=== PATIENT | female | born 2000 | race Caucasian/White ===

== ENCOUNTER 2025-06-16 08:26 | Emergency (ER) | payer SELFPAY ==
--- OUTSIDE RECORDS SUMMARY | 2024-12-27 03:53 | XMS_ITS | Continuity of Care Document ---
Author Organization [facility] Address EDITORIAL CLERK [facility] [address] [place] [address] Phone Care Team Providers Care Cell Phone Repair Technician Name Role Phone Melissa Ravi APRN, CNP Unavailable Unavailabl e Allergies, Adverse Reactions, Alerts Substance Reaction Status Criticality adhesive Rash(mild) Active No Information mushroom Active No Information cinnamon Active No Information POTASSIUM CLAVULANATE vomiting Active No Inf ormation AMOXICILLIN TRIHYDRATE vomiting Active No In formation penicillin G rash Active No Information Medications Medication Instructions Dosage Effective Dates (start - stop) Status Comments omeprazole 40 mg capsule,delayed release take 1 capsule by oral route every day before a meal 40 MG - Active bupropion HCl XL 150 mg 24 hr tablet, extended release - Active SUMATRIPTAN SUCC 100 MG TABLET TAKE 1 TABLET BY ORAL ROUTE ONCE AFTER ONSET OF MIGRAINE MAY REPEAT AFTER 2 HOURS IF HEADACHE RETURNS,NOT TO EXCEED 200MG IN 24HRS - Active ibuprofen 600 mg tablet take 1 tablet by oral route 4 times every day with food 600 MG - Active mirtazapine [address] 1 tablet by translingual route every day on top of tongue, allow to dissolve then swallow in the evening prior to sleep 30 MG - Active Procedures Procedure Date IMMUNIZATION ADMIN FLU VACC CELL CULT PRSV FREE PREV VISIT, EST, AGE 18-39 TOBACCO NON-USER SYST BP < 130 MM HG DIAST BP < 80 MM HG WEIGHT RECORD BODY MASS INDEX DOCD OFFICE/OUTPATIENT, EST_TELE[facility] PT TOBACCO SCREEN RCVD TLK Indiv Psychotherapy 30 Min OFFICE/OUTPATIENT, EST_TELEHEALTH TOBACCO NON-USER OFFICE/OUTPATIENT VISIT, EST OFFICE/OUTPATIENT, EST_TELEHEALTH Limited Oral Evaluation-Problem Focused Panoramic Radiographic Image Ext, Erupt Tth/Expsd Root-Elev &/Or Forc eps Remvl Ext, Erupt Tth/Expsd Root-Elev &/Or Forc eps Remvl NO CHARGE_BH Visit <15 Mins LIPID PANEL PREV VISIT, EST, AGE 18-39 OFFICE/OUTPATIENT, EST_[facility] SYST BP < 130 MM HG Systolic BP < 140 mmhg DIAST BP < 80 MM HG Diastolic BP < 90 mmhg WEIGHT RECORD BODY MASS INDEX DOCD OFFICE/OUTPATIENT, EST_TELE[facility] SYST BP < 130 MM HG Systolic BP < 140 mmhg DIAST BP < 80 MM HG Diastolic BP < 90 mmhg WEIGHT RECORD BODY MASS INDEX DOCD OFFICE/OUTPATIENT, EST_TELEHEALTH SYST BP < 130 MM HG Systolic BP < 140 mmhg DIAST BP < 80 MM HG Diastolic BP < 90 mmhg WEIGHT RECORD BODY MASS INDEX DOCD OFFICE/OUTPATIENT, EST_TELEHEALTH SYST BP < 130 MM HG Systolic BP < 140 mmhg DIAST BP < 80 MM HG Diastolic BP < 90 mmhg WEIGHT RECORD BODY MASS INDEX DOCD OFFICE/OUTPATIENT, EST_TELEHEALTH SYST BP < 130 MM HG Systolic BP < 140 mmhg DIAST BP < 80 MM HG Diastolic BP < 90 mmhg WEIGHT RECORD BODY MASS INDEX DOCD OFFICE/OUTPATIENT, EST_TELEHEALTH SYST BP < 130 MM HG Systolic BP < 140 mmhg DIAST BP < 80 MM HG Diastolic BP < 90 mmhg WEIGHT RECORD BODY MASS INDEX DOCD OFFICE/OUTPATIENT, EST_TELEHEALTH OFFICE/OUTPATIENT, EST_TELE[facility]ALTH Indiv Psychotherapy 30 Min OFFICE/OUTPATIENT VISIT, EST OFFICE/OUTPATIENT VISIT, EST SYST BP < 130 MM HG Systolic BP < 140 mmhg DIAST BP < 80 MM HG Diastolic BP < 90 mmhg WEIGHT RECORD BODY MASS INDEX DOCD OFFICE/OUTPATIENT VISIT, EST SYST BP < 130 MM HG Systolic BP < 140 mmhg DIAST BP < 80 MM HG Diastolic BP < 90 mmhg WEIGHT RECORD BODY MASS INDEX DOCD Comprehensive Oral Eval-New Or Establish ed Patient Panoramic Radiographic Image Bitewings-Two Radiographic Images Psych Diag Eval W/ Med Svc E&M New Pt Au SYST BP < 130 MM HG Systolic BP < 140 mmhg DIAST BP < 80 MM HG Diastolic BP < 90 mmhg WEIGHT RECORD Indiv Psychotherapy 30 Min SYST BP < 130 MM HG Systolic BP < 140 mmhg DIAST BP < 80 MM HG Diastolic BP < 90 mmhg WEIGHT RECORD BODY MASS INDEX DOCD OFFICE/OUTPATIENT VISIT, EST SYST BP < 130 MM HG Systolic BP < 140 mmhg DIAST BP < 80 MM HG Diastolic BP < 90 mmhg WEIGHT RECORD BODY MASS INDEX DOCD Encounter Created In Error OFFICE/OUTPATIENT VISIT, EST SYST BP < 130 MM HG Systolic BP < 140 mmhg DIAST BP < 80 MM HG Diastolic BP < 90 mmhg WEIGHT RECORD BODY MASS INDEX DOCD OFFICE/OUTPATIENT VISIT, EST SYST BP < 130 MM HG Systolic BP < 140 mmhg DIAST BP < 80 MM HG Diastolic BP < 90 mmhg WEIGHT RECORD BODY MASS INDEX DOCD OFFICE/OUTPATIENT VISIT, EST OFFICE/OUTPATIENT VISIT, EST OFFICE/OUTPATIENT VISIT, EST SYST BP < 130 MM HG Systolic BP < 140 mmhg DIAST BP < 80 MM HG Diastolic BP < 90 mmhg WEIGHT RECORD BODY MASS INDEX DOCD OFFICE/OUTPATIENT VISIT, EST SYST BP < 130 MM HG Systolic BP < 140 mmhg DIAST BP < 80 MM HG Diastolic BP < 90 mmhg WEIGHT RECORD BODY MASS INDEX DOCD OFFICE/OUTPATIENT VISIT, EST SYST BP < 130 MM HG Systolic BP < 140 mmhg DIAST BP < 80 MM HG Diastolic BP < 90 mmhg WEIGHT RECORD BODY MASS INDEX DOCD Psych Diag Eval W/ Med Svc E&M New Pt De SYST BP < 130 MM HG Systolic BP < 140 mmhg DIAST BP < 80 MM HG Diastolic BP < 90 mmhg WEIGHT RECORD BODY MASS INDEX DOCD Psych Diagnostic Eval, No Medical Servic es PREV VISIT, EST, AGE 18-39 SYST BP < 130 MM HG Systolic BP < 140 mmhg DIAST BP < 80 MM HG Diastolic BP < 90 mmhg WEIGHT RECORD BODY MASS INDEX DOCD Caries risk assessment & documentation, high risk Panoramic Radiographic Image Bitewings-Two Radiographic Images Comprehensive Oral Eval-New Or Establish ed Patient Sealant Measure Exempt -No Sealable 1st Molars Assessment Of A Patient OFFICE/OUTPATIENT VISIT, EST HEP A VACC, PED/ADOL, 2 DOSE Gardasil 9 TDAP VACCINE >7 IM MENINGOCOCCAL VACCINE, IM PREV VISIT, NEW, AGE 12-17 PREV VISIT, NEW, AGE 12-17 PURE TONE HEARING TEST, AIR VISUAL ACUITY SCREEN URINALYSIS, AUTO, W/O SCOPE HEP A VACCINE, ADULT IM HEP A VACC, PED/ADOL, 3 DOSE MENINGOCOCCAL VACCINE, SC Advance Directives Directive Yes / No Effective Date File Name No Information Encounters Encounter Description Practice Location Reason(s) For Visit Diagnoses Date Provider Providers Copied on [facility]counter [facility], [facility] [address] [place] [address], [place], [place], [facility], tel: [phone] [facility] No Information Dec-10 09- 5 Trav Melissa. 10 [facility], [id number] [facility], [place], [place], [address] [place] [address], [place]. tel:[phone] PREV VISIT, EST, AGE 18-39 [facility], [facility] [address] [place] [address], [place], [place], [facility], tel: [phone] [facility] preventive exam (chief complaint)Ac id reflux (chief complaint)Pr evention (chief complaint)BH VS (chief complaint) Body mass index (BMI) 21.0-21.9, adultEncounte r for general adult medical examination without abnormal findingsEncou nter for immunizationC hronic nausea Jul- 4 Trav Melissa. 10 [facility], [id number] [facility], [place], [place], [address] [place] [address], [place]. tel:[phone] [facility], [facility] [employer] [address] [place] [address], [facility], tel: [phone] [facility] No Information - 4 Trav Melissa. 10 [facility], [id number] [facility], [place], [place], [address] [place] [address], [place]. tel:[phone] [facility], [facility] [employer] [address] [place] [address], [facility], tel: [phone] [facility] No Information 4 Trav Melissa. 10 [facility], [id number] [facility], [place], [place], [address] [place] [address], [place]. tel:[phone] OFFICE/OUTPATI ENT, EST_TELEHEALTH [facility], [facility] [employer] [address] [place] [address], [place], [facility], [place] tel:[phone] [facility] Virtual Visit (chief complaint)to bacco (chief complaint) Tobacco dependence May- 4 Travilene Torres. 10 [facility], [id number] [address] [place] [address], [id number], [place]. tel:[phone] Indiv Psychotherapy 30 Min [facility], [facility] Primary [employer] [address] [place] [address], [facility], [place] tel:[phone] [facility] Major depressive disorder, recurrent episode with mixed featuresTrans genderEncount er for smoking cessation counseling May- 4 Bright Nelson. 10 [address] [facility] [place], [id number] [address] [place] [address], [facility], [place]. tel:[phone] OFFICE/OUTPATI ENT, EST_TELEHEALTH [facility], [facility] Primary [employer] [address] [place] [address], [facility], [place] tel:[phone] [facility] Virtual Visit (chief complaint)He adache (chief complaint) Bilateral impacted cerumenRight- sided headache 4 Trav Melissa. 10 [facility], [id number] [facility], [place], [place], [id number], [place]. tel:[phone] OFFICE/OUTPATI ENT VISIT, EST [facility], [facility] [employer] [address] [place] [address], [facility], [place] tel:[phone] [facility] Ear discomfort (chief complaint)Pr evention (chief complaint)BH VS (chief complaint) Body mass index (BMI) 19 or less, adultBilatera l impacted cerumen 4 Trav Torres. 10 [facility], [id number] [address] [place] [address], [id number], [place]. tel:[phone] OFFICE/OUTPATI ENT, EST_TELEHEALTH [facility], [facility] [employer] [address] [place] [address], [facility], [place] tel:[phone] [facility] Virtual Visit (chief complaint)Si nus symptoms (acute) (chief complaint) Acute non-recurrent sinusitis, unspecified location 4 Rui Castro. [address] [place], [id number] [facility], [place], [place], [id number], [place]. [phone] [facility], [facility] [employer] [address] [place] [address], [place], [address], [place] tel:[phone] [facility] No Information 4 Meron Rios. [address] [place] [address], [id number] [facility], [place], [place], [id number], [place]. tel:[phone] [facility], [facility] [employer] [address], [place], [address], [place] tel:[phone] [facility] Major depressive disorder, recurrent episode with mixed featuresTrans genderPersona l history of other mental and behavioral disorders 3 Bright Nelson. 10 [address] [facility] [place], [id number] [facility], [place], [address], [place]. [phone] PREV VISIT, EST, AGE 18-39 [facility], [facility] [employer] [address] [place] [address], [place], [address], [place] [phone] [facility] preventive exam (chief complaint)Na usea (chief complaint)Pr evention (chief complaint)BH VS (chief complaint) Encounter for general adult medical examination without abnormal findingsBody mass index (BMI) 20.0-20.9, adultChronic nauseaChronic constipationA nxietyBreast mass in female 3 Trav Torres. [address] [place] , [id number] [facility], [place], [place], [id number], [place]. tel:[phone] OFFICE/OUTPATI ENT, EST_TELEHEALTH [facility], [facility] [employer] [address], [place], [address], [place] tel:[phone] [facility] Virtual Visit (chief complaint)Ab dominal pain (chief complaint) Chronic nauseaGeneral ized abdominal pain 2 Trav Melissa. [address], [id number] [facility], [place], [place], [id number], [place]. tel:[phone] OFFICE/OUTPATI ENT, EST_TELEHEALTH [facility], [facility] [employer] [address] [place] [address], [facility], [place] tel:[phone] [facility] Virtual Visit (chief complaint)Ab dominal pain (chief complaint) Chronic nauseaPain of upper abdomen 2 Trav Melissa. 10 [address] [facility], [id number] [facility], [place], [place], [id number], [place]. tel:[phone] OFFICE/OUTPATI ENT, EST_TELEHEALTH [facility], [facility] [employer] [address] [place] [address], [facility], [place] tel:[phone] [facility] Virtual Visit (chief complaint)Ab dominal pain (chief complaint) Pain of upper abdomen 2 Trav Melissa. [address], [id number] [facility], [place], [place], [id number], [place]. tel:[phone] [facility], [facility] [employer] [address] [place] [address], [facility], [place] tel:[phone] [facility] Breast mass in female 2 Trav Melissa. [address], [id number] [facility], [place], [place], [id number], [place]. tel:[phone] OFFICE/OUTPATI ENT, EST_TELEHEALTH [facility], [facility] Primary [facility] [address] [place] [address], [facility], [place] tel:[phone] [facility] mass (chief complaint)Vi rtual Visit (chief complaint) Breast mass in female 2 Trav Melissa. [address] [place] , [id number] [address] [place] [address], [id number], [place]. tel:[phone] OFFICE/OUTPATI ENT, EST_TELEHEALTH [facility], [address], [facility], [place] tel:[phone] [facility] Virtual Visit (chief complaint)Co nstipation (chief complaint) Pain of upper abdomen 2 Trav Melissa. 10 [address] [facility], [id number] [address] [place] [address], [id number], [place]. tel:[phone] OFFICE/OUTPATI ENT, EST_TELEHEALTH [facility], [address], [facility], [place] tel:[phone] [facility] Virtual Visit (chief complaint)Na usea and vomiting (chief complaint) Chronic nauseaNon-int ractable vomiting with nausea, unspecified vomiting type 1 Trav Melissa. 10 [facility], [id number] [address] [place] [address], [id number], [place]. tel:[phone] OFFICE/OUTPATI ENT, EST_TELEHEALTH [facility], [address], [facility], [place] tel:[phone] [facility] Virtual Visit (chief complaint)ch est pain (chief complaint) Acute chest wall pain 1 Trav Melissa. 10 [facility], [id number] [address] [place] [address], [id number], [place]. tel:[phone] OFFICE/OUTPATI ENT, EST_TELEHEALTH [facility], [address], [facility], [place] tel:[phone] [facility] Virtual Visit (chief complaint)ab dominal pain (chief complaint) Pain of upper abdomen 1 Trav Melissa. 10 [facility], [id number] [address] [place] [address], [id number], [place]. tel:[phone] Indiv Psychotherapy 30 Min [facility] Cbtiu rajani, [facility] [employer] [address] [place] [address], [id number], [place] [phone] [facility] Major depressive disorder, recurrent episode with mixed featuresTrans genderHistory of eating disorderCanna bis abuse 1 Bright Nelson. 10 [address] [facility], [id number] [address] [place] [address], [address], [place]. tel:[phone] OFFICE/OUTPATI ENT VISIT, EST [facility] Cbtiu , [facility] [employer] [address] [place] [address], [address], [place] [phone] [facility] depression (chief complaint)Gtz bstance abuse (chief complaint)St ressed (chief complaint) Major depressive disorder, recurrent episode with mixed featuresTrans genderHistory of eating disorderCanna bis abuse 0 Romanello Kayleen. [address] [place] [address], [id number], [place]. tel:[phone] OFFICE/OUTPATI ENT VISIT, EST [facility] [place] , [facility] [employer] [address] [place] [address], [id number], [place] [phone] [facility] depression (chief complaint)St ressed (chief complaint) Major depressive disorder, recurrent episode with mixed featuresTrans genderHistory of eating disorderCanna bis abuse 0 9 0 Romanello Kayleen. [address] [place] [address], [id number], [place]. tel:[phone] OFFICE/OUTPATI ENT VISIT, SHAVON [facility] , [facility] [employer] [address] [place] [address], [address], [place] tel:[phone] [facility] depression (chief complaint) Major depressive disorder, recurrent episode with mixed featuresTrans genderHistory of eating disorderCanna bis abuse Jun-0 5-202 0 Romanello Kayleen. [address] [place] [address], [id number], . [phone] [facility] , [facility] [employer] [address] [place] [address], [facility], tel:[phone] Doug Mohr [facility] Encounter for dental exam and cleaning w/o abnormal findings 0 Childers Lydia. [address] [place] [address], [id number], . tel:[phone] Psych Diag Eval W/ Med Sv E&M New Pt [facility] , [facility] [employer] [address] [place] [address], [facility], [place] [phone] Doug [facility] Depression (chief complaint)Ps [facility] ROS (chief complaint) Major depressive disorder, recurrent episode with mixed featuresTrans genderHistory of eating disorderCanna bis abuse 0 Romanello Kayleen. [address] [place] [address], [id number], . tel:[phone] Indiv Psychotherapy 30 Min [facility] , [facility] [employer] [address] [place] [address], [facility], [place] tel:[phone] [facility] Major depressive disorder, recurrent episode with mixed featuresAnxie tyADHD, predominantly inattentive typePTSD (post-traumat ic stress disorder)Goff sgenderHistor y of eating disorderSleep disturbance 0 Bright Nelson. [address] [place], [id number] [facility], [place], [place], [facility], [place]. tel:[phone] OFFICE/OUTPATI ENT VISIT, EST [facility] , [facility] Primary [employer] [address] [place] [address], [facility], [place] tel:[phone] [facility] Shoulder Pain (chief complaint)BH VS (chief complaint) Body mass index (BMI) 20.0-20.9, adultLeft anterior shoulder pain 0 Trav Melissa. [address], [id number] [address] [place] [address], [id number], [place]. tel:[phone] [facility] [place]iss[place] rajani, [facility] [employer] [address] [place] [address], [place], [address], [place] tel:[phone] Doug [facility] No Information 0 Angela Beyer. [address] [place] [address], [id number], [place]. tel:[phone] OFFICE/OUTPATI ENT VISIT, SHAVON [facility] Len gerard, [facility] [employer] [address] [place] [address], [address], [place] tel:[phone] [facility] Depression (chief complaint)An xiety (chief complaint) Major depressive disorder, recurrent episode with mixed featuresAnxie tyADHD, predominantly inattentive typePTSD (post-traumat ic stress disorder)Goff sgenderHistor y of eating disorderSleep disturbance 0 Vinay Nicky. [address] [facility] [place], [id number] [address] [place] [address], [facility], [place]. tel:[phone] OFFICE/OUTPATI ENT VISIT, SHAVON [facility] Len gerard, [facility] [employer] [address] [place] [address], [facility], [place] tel:[phone] [facility] Anxiety (chief complaint)AD HD (chief complaint)De pression (chief complaint)ea ting disorder (chief complaint) AnxietyADHD, predominantly inattentive typePTSD (post-traumat ic stress disorder)Goff sgenderHistor y of eating disorderSleep disturbanceMa brittanie depressive disorder, recurrent episode with mixed features 0 Vinay Nicky. [address] [facility] [place], [id number] [address] [place] [address], [facility], [place]. tel:[phone] OFFICE/OUTPATI ENT VISIT, SHAVON [facility] Len gerard, [facility] [employer] [address] [place] [address], [facility], [place] tel:[phone] [facility] ADHD (chief complaint)De pression (chief complaint)An xiety (chief complaint)Ea ting disorders (chief complaint)Sl eep disturbance (chief complaint) ADHD, predominantly inattentive typeAnxietyPT SD (post-traumat ic stress disorder)Goff sgenderHistor y of eating disorderBipol ar 2 disorder Dec- 0 Vinay Nicky. [address] [facility] [place], [id number] [facility], [place], [address], [place]. tel:[phone] OFFICE/OUTPATI ENT VISIT, SHAVON [facility], [facility] [employer] [address] [place] [address], [id number], [place] tel:[phone] [facility] nausea (chief complaint) NauseaIron deficiency anemia, unspecified iron deficiency anemia type 0 Trav Melissa. [address] [facility], [id number] [facility], [place], [place], [id number], [place]. tel:[phone] OFFICE/OUTPATI ENT VISIT, SHAVON [facility], [facility] [employer] [address] [place] [address], [facility], [place] tel:[phone] [facility] anxiety (chief complaint)De pression (chief complaint)AD HD (chief complaint)BH VS (chief complaint)Ea ting disorders (chief complaint) Moderate episode of recurrent major depressive disorderAnxie tyPTSD (post-traumat ic stress disorder)Goff sgenderHistor y of eating disorderADHD, predominantly inattentive type 0 Vinay Incky. [address] [facility] [place], [id number] [facility], [place], [address], [place]. 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 [address] [facility] [place], [id number] [facility], [place], [place], [facility], [place]. tel:[phone] OFFICE/OUTPATI ENT VISIT, EST Chastity [facility] , [facility] [employer] [address] [place] [address], [facility], [place] tel: [phone] [facility] anxiety (chief complaint)BH VS (chief complaint)de pression (chief complaint)Ea ting disorders (chief complaint) Moderate episode of recurrent major depressive disorderAnxie tyConcentrati on deficitPTSD (post-traumat ic stress disorder)Goff sgenderHistor y of eating disorder 0 Vinay Nicky. [address] [facility] [place], [id number] [facility], [place], [place], [facility], [place]. tel:[phone] Psych Diag Eval W/ Med Svc E&M [facility], [facility] [employer] [address] [place] [address], [facility], [place] tel: [phone] [facility] Psychiatric Intake (chief complaint) AnxietyConcen tration deficitTransg enderModerate episode of recurrent major depressive disorderPTSD (post-traumat ic stress disorder)Hist ory of eating disorder 9 Vinay Nicky. [address] [facility] A, [id number] [facility], [place], [place], [facility], [place]. tel:[phone] Psych Diagnostic Eval, No Medical Services Chastity [facility], [facility] [employer] [address] [place] [address], [facility], [place] tel:[phone] [facility] anxiety (chief complaint)co ncentration deficits (chief complaint) AnxietyConcen tration deficit 9 Raliliyain Leslie. [address] [facility] [place], [id number] [facility], [place], [address], [place]. tel:[phone] PREV VISIT, EST, AGE 18-39 Chastity [facility], [facility] [employer] [address], [place], [address], [place] tel:[phone] [facility] preventive exam (chief complaint)bh vs (chief complaint) Body mass index (BMI) 19 or less, adultEncntr for general adult medical exam w/o abnormal findingsAnxie ty 9 Trav Melissa. [address], [id number] 0, [place], [place], [id number], [place]. tel:[phone] Chastity [facility], [facility] [employer] [address], [address], [place] tel:[phone] Doug Fani [facility] Encounter for dental exam and cleaning w/o abnormal findings 9 Yamilka Granados. [address] [facility], [id number] 0, [place], [address], [place]. [phone] OFFICE/OUTPATI ENT VISIT, EST Chastity [facility], [facility] [employer] [address], [place], [address], [place] tel:[phone] [facility] Sore throat (chief complaint)Co ugh (chief complaint) Pharyngitis, unspecified etiology 7 Wesly Rebecca. [address], [id number] 0, [place], [address], [place]. tel:[phone] PREV VISIT, NEW, AGE 12-17 Chastity [facility], [facility] [employer] [address], [place], [address], [place] tel:[phone] [facility] E/r follow up (chief complaint) Right hip painWell adolescent visit with abnormal findingsImmun ization dueTransgende r 7 Wesly Rebecca. [address], [id number] 0, [place], [address], [place]. tel:[phone] PREV VISIT, NEW, AGE 12-17 [facility] BENSON Martinez [employer] [address], [place], [address], [place] tel:[phone] [facility] Well child - 12 Years (chief complaint)hi ves and diarrhea when stressed (chief complaint) Routine or child health check [phone] [place] Jani, [id number] [facility], [place], [place], [id number], [place]. tel:[phone] Family History Family Member Type Diagnosis Age At Onset Problem (finding) Family history of Diabe molly mellitus Problem (finding) Family history of coronary arteriosclerosis Problem Family history of Drug addic tion Problem (finding) Family history of raise d blood lipids Mother Problem Alcoholism Problem (finding) Family history of hyper tension Problem Family history of Depression Immunizations Vaccine Date Status Comments FLUCELVAX Preservative Free administered Source: New Immunization Record COVID-19 vaccine, vector-nr, rS-Ad26, PF, 0.5 mL administered Source: Other Regist ry Tdap administered Source: Other R egistry MCV4 administered Source: New Imm unization Record Tdap administered Source: New Imm unization Record HPV (9-valent) administered Source: New I mmunization Record Hep A (ped/adol, 2 dose) administered Veda rce: New Immunization Record Hep A (ped/adol, 2 dose) administered Veda rce: New Immunization Record MCV4 (11-55 yrs) administered Source: New Immunization Record Tdap administered Source: Other P rovider IPV administered Source: Other R egistry measles, mumps and rubella virus vaccine administered Source: Other Provid er DTaP (younger than 7 yrs) administered So urce: Other Provider IPV administered Source: Other R egistry Hib (HbOC) administered Source: Other R egistry DTaP, unspecified formulation administere d Source: Other Registry Haemophilus influenzae type b vaccine, conjugate unspecified formulation administered Source: Other Provid er diphtheria, tetanus toxoids and acellular pertussis vaccine administered Source: Other Provid er pneumococcal conjugate PCV 7 administered Source: Other Registry Varicella administered Source: Other P rovider MMR administered Source: Other P rovider hepatitis B vaccine, pediatr ic or pediatric/adolescent dosage administered Source: O ther Provider Hib ([facility]) administered Source: Other R egistry DTaP, unspecified formulation administere d Source: Other Registry Haemophilus influenzae type b vaccine, conjugate unspecified formulation administered Source: Other Provid er diphtheria, tetanus toxoids and acellular pertussis vaccine administered Source: Other Provid er IPV administered Source: Other R egistry Hib ([facility]) administered Source: Other R egistry DTaP, unspecified formulation administere d Source: Other Registry Haemophilus influenzae type b vaccine, conjugate unspecified formulation administered Source: Other Provid er diphtheria, tetanus toxoids and acellular pertussis vaccine administered Source: Other Provid er IPV administered Source: Other R egistry Hib ([facility]) administered Source: Other R egistry DTaP, unspecified formulation administere d Source: Other Registry Hib (PRP-OMP) administered Source: Other Provider hepatitis B vaccine, pediatr ic or pediatric/adolescent dosage administered Source: O ther Provider diphtheria, tetanus toxoids and acellular pertussis vaccine administered Source: Other Provid er Hep B (ped/adol, 3 dose) administered Veda rce: Other Provider Payers Payer name Insurance type Covered republican ID Authoriza tion(s) Earline [facility] [id number] [place] [employer] CFC HM [id number] [facility] [id number] [facility] [id number] [place] [employer] CFC HM [id number] [facility] [id number] [place] [employer] CFC HM [id number] [facility] [id number] Social History Type Description Quantity Date Captured Comments Alcohol Use Details Unknown Caffeine Use Details Unknown Tobacco Use Status No Information Smoking Status No Information Sex Female Sexual Orientation Bisexual Gender Identity Qejlao-af-Nzir (FTM) /Transgender Male/Trans Man Chief Complaint And Reason For Visit No Information Reason For Referral Reason For Referral No Information Plan Of Treatment Date Type Action Status Goal HPV (3rd). Due on 8 due Goal Hepatitis C screening due Goal Depression scree gagan. Due on due Goal PAP. Due on due Goal HPV (2nd). Due on 7 due Goal Influenza vaccin e. Due on due Goal Tdap due Goal Unhealthy drug use screening due Goal Lipid panel. Due on 040 due Goal HPV (1st) due Goal HPV (1st) due Goal Influenza vaccin e. Due on due Goal Lipid panel. Due on 040 due Goal Depression scree gagan. Due on due Goal Hepatitis C screening due Goal PAP. Due on due Goal Unhealthy drug use screening due Goal HPV (2nd). Due on 7 due Goal Tdap due Goal HPV (3rd). Due on 8 due Goal Lifestyle education regardin g diet completed Goal HPV (3rd). Due on 8 due Goal Depression scree gagan. Due on due Goal HPV (1st) due Goal PAP. Due on due Goal Lipid panel. Due on due Goal HPV (2nd). Due on 7 due Goal Tdap due Goal Influenza vaccin e. Due on due Goal Hepatitis C screening due Goal Unhealthy drug use screening due Goal Unhealthy drug use screening due Goal PAP. Due on due Goal Depression scree gagan. Due on due Goal HPV (3rd). Due on 8 due Goal HPV (2nd). Due on 7 due Goal HPV (1st) due Goal Tdap due Goal Lipid panel. Due on due Goal Hepatitis C screening due Goal HPV (1st) due Goal Hepatitis C screening due Goal Depression scree gagan. Due on due Goal HPV (3rd). Due on 8 due Goal HPV (2nd). Due on due Goal Lipid panel. Due on due Goal Tdap due Goal PAP. Due on due Goal Unhealthy drug use screening due Goal Tobacco cessation counseling completed Goal HPV (1st) due Goal Lipid panel. Due on due Goal Tdap due Goal HPV (3rd). Due on 8 due Goal HPV (2nd). Due on due Goal PAP. Due on due Goal Hepatitis C scre ening. Due on due Goal Unhealthy drug use screening due Goal Depression scree gagan. Due on due Goal Tdap due Goal PAP. Due on due Goal Hepatitis C scre ening. Due on due Goal Lipid panel. Due on due Goal Unhealthy drug use screening due Goal HPV (3rd). Due on due Goal HPV (2nd). Due on due Goal Depression scree gagan. Due on due Goal HPV (1st) due Goal Lifestyle education regardin g diet completed Goal Depression scree gagan. Due on due Goal Unhealthy drug use screening due Goal HPV (2nd). Due on due Goal HPV (3rd). Due on due Goal Lipid panel. Due on due Goal Tdap due Goal PAP. Due on due Goal HPV (1st) due Goal Hepatitis C scre ening. Due on due Goal Tdap due Goal HPV (1st) due Goal HPV (2nd). Due on due Goal Depression scree gagan. Due on due Goal Hepatitis C scre ening. Due on due Goal Unhealthy drug use screening due Goal HPV (3rd). Due on 8 due Goal PAP. Due on due Goal Lipid panel. Due on due Goal HPV (3rd). Due on 8 due Goal Lipid panel. Due on due Goal Tdap due Goal Depression scree gagan. Due on due Goal HPV (2nd). Due on 7 due Goal Influenza vaccin e. Due on due Goal PAP. Due on due Goal HPV (1st) due Goal Unhealthy drug use screening due Goal Hepatitis C scre ening. Due on due Goal Lipid panel. Due on due Goal Depression scree gagan. Due on due Goal PAP. Due on due Goal HPV (1st) due Goal Hepatitis C scre ening. Due on due Goal Tdap due Goal Unhealthy drug use screening due Goal HPV (3rd). Due on 8 due Goal HPV (2nd). Due on due Goal Influenza vaccin e. Due on due Goal Lifestyle education regardin g diet completed Goal PAP. Due on due Goal Hepatitis C scre ening. Due on due Goal Influenza vaccin e. Due on due Goal Depression scree gagan. Due on due Goal HPV (3rd). Due on 8 due Goal Tdap due Goal HPV (1st) due Goal Unhealthy drug u se screening. Due on due Goal HPV (2nd). Due on due Goal Influenza vaccin e. Due on due Goal Hepatitis C scre ening. Due on due Goal HPV (2nd). Due on due Goal Tdap due Goal HPV (1st) due Goal HPV (3rd). Due on 8 due Goal PAP. Due on due Goal Unhealthy drug u se screening. Due on due Goal Depression scree gagan. Due on due Goal Tdap due Goal Influenza vaccin e. Due on due Goal Unhealthy drug u se screening. Due on due Goal HPV (1st) due Goal PAP. Due on due Goal Depression scree gagan. Due on due Goal Hepatitis C scre ening. Due on due Goal HPV (2nd). Due on due Goal HPV (3rd). Due on 8 due Goal Unhealthy drug u se screening. Due on due Goal Hepatitis C scre ening. Due on due Goal HPV (1st) due Goal PAP. Due on due Goal Depression scree gagan. Due on due Goal HPV (2nd). Due on 7 due Goal Tdap due Goal HPV (3rd). Due on 8 due Goal Influenza vaccin e. Due on due Goal HPV (1st) due Goal HPV (2nd). Due on 7 due Goal Unhealthy drug u se screening. Due on due Goal Depression scree gagan. Due on due Goal Tdap due Goal PAP. Due on due Goal Influenza vaccin e. Due on due Goal Hepatitis C scre ening. Due on due Goal HPV (3rd). Due on 8 due Goal Hepatitis C scre ening. Due on due Goal Depression scree gagan. Due on due Goal HPV (1st) due Goal Unhealthy drug u se screening. Due on due Goal Influenza vaccin e. Due on due Goal PAP. Due on due Goal HPV (3rd). Due on 8 due Goal Tdap due Goal HPV (2nd). Due on 7 due Goal HPV (2nd). Due on due Goal Hepatitis C scre ening. Due on due Goal Tdap due Goal PAP. Due on due Goal HPV (1st) due Goal Influenza vaccin e. Due on due Goal Depression scree gagan. Due on due Goal HPV (3rd). Due on 8 due Goal Unhealthy drug u se screening. Due on due Goal Influenza vaccin e. Due on due Goal Depression scree gagan. Due on due Goal HPV (2nd). Due on 7 due Goal Tdap due Goal HPV (1st) due Goal PAP. Due on due Goal HPV (3rd). Due on 8 due Goal Tdap due Goal Depression scree gagan. Due on due Goal HPV (1st) due Goal Influenza vaccin e. Due on due Goal HPV (2nd). Due on 7 due Goal HPV (3rd). Due on 8 due Goal Fluoride varnish application. Due on due Goal HPV (1st) due Goal HPV (3rd). Due on 8 due Goal Influenza vaccin e. Due on due Goal Depression scree gagan. Due on due Goal Tdap due Goal Fluoride varnish application. Due on due Goal HPV (2nd). Due on 7 due Goal HPV (3rd). Due on 8 due Goal Fluoride varnish application. Due on due Goal Tdap due Goal HPV (2nd). Due on 7 due Goal Depression scree gagan. Due on due Goal Influenza vaccin e. Due on due Goal HPV (1st) due Goal HPV (1st) due Goal Influenza vaccin e. Due on due Goal Depression scree gagan. Due on due Goal Fluoride varnish application. Due on due Goal HPV (2nd). Due on 7 due Goal Tdap due Goal HPV (3rd). Due on 8 due Goal Lifestyle education regardin g diet completed Goal Lifestyle education regardin g diet completed Referral Referred To: Dr Vital Ordered: Referrals: ENT / Otolaryngology. Dr Vital. Evaluate and treat ordered Referral Ordered: US breast left limited ordered Referral Referred To: Leslie Novoa SEISMIC ENGINEER [address] [facility] [place]
[id number] [place], [address] [phone] Ordered: Referrals: *PHS - Soft Work Wrapper Examiner (BHP). Leslie TROTTER. Consult ordered Referral Referred To: Karol Ordered: Referrals: Gastroenterology. Karol. Evaluate and treat ordered Referral Ordered: HIDA scan ordered Referral Ordered: Hepatobiliary iminodiacetic acid (HIDA) scan with gallbladder ejection fraction ordered Referral Ordered: US abdomen complete ordered Referral Ordered: Diagnostic mammography of both breasts ordered Referral Ordered: Breast ultrasonography Left ordered Referral Ordered: Mammography, diagnostic L ordered Referral Ordered: Elder Yanez MD -Gastroenterology (related to Chronic nausea) ordered Referral Referred To: Elder Yanez MD [address] [address] [place], [place], [id number] Ordered: Referrals: Gastroenterology. Elder Yanez MD. Evaluate and treat ordered Referral Ordered: *PHS - ADHD (related to Major depressive disorder, recurrent episode with mixed features) ordered Referral Ordered: Referrals: *PHS - ADHD. Evaluate and treat ordered Referral Ordered: CDC (related to Major depressive disorder, recurrent episode with mixed features) ordered Referral Referred To: CDC Ordered: Referrals: CDC. Diagnostic testing ordered Referral Ordered: CDC -*PHS - ADHD (related to Major depressive disorder, recurrent episode with mixed features) ordered Referral Referred To: CDC Ordered: Referrals: *PHS - ADHD. CDC. Diagnostic testing ordered Referral Ordered: *PHS - continuous pickling line pickler helper (related to Major depressive disorder, recurrent episode with mixed features) ordered Referral Ordered: Robin -Orthopedics (related to Left anterior shoulder pain) ordered Referral Referred To: Robin Ordered: Referrals: Orthopedics. Robin. Evaluate and treat ordered Referral Ordered: *PHS - continuous pickling line pickler helper (related to Anxiety) ordered Referral Ordered: Referrals: *PHS - continuous pickling line pickler helper. Evaluate and treat ordered Referral Ordered: Referrals: Orthopedics. Evaluate and treat ordered Referral Ordered: Referrals: Endocrinology. Evaluate and treat ordered Patient Education Body Mass Index: Care I nstructions completed Future Order: Lab Order CBC w/di ff ([id number]), Sent on: Sent Future Order: Lab Order CMP ([id number]), Sent on: Sent Future Order: Lab Order Hemoglob in A1c ([id number]), Sent on: Sent Future Order: Lab Order Lipid Pa yoan ([id number]), Sent on: Sent Future Order: Lab Order TSH+Free T4 ([id number]), Sent on: Sent Future Order: Lab Order Anemia P rofile ([id number]), Sent on: Sent Future Order: Lab Order Hemoglob in A1c ([id number]), Sent on: Sent Future Order: Lab Order CMP ([id number]), Sent on: Sent Future Order: Lab Order Lipid Pa yoan ([id number]), Sent on: Sent Future Order: Lab Order HIV 1/0/ 2 Ag/Ab w/Rflx ([id number]), Sent on: Sent Future Order: Lab Order Hepatiti s C Virus (HCV) Antibody [place] To Quantitative PCR Genotyping ([id number]), Sent on: Sent Future Order: Lab Order TSH+Free T4 ([id number]), Sent on: Sent Future Order: Radiology Order He patobiliary iminodiacetic acid (HIDA) scan with gallbladder ejection fraction ([id number]), Added on: New Future Order: Radiology Order US abdomen complete ([id number]), Added on: New Future Order: Radiology Order Di agnostic mammography of both breasts ([id number]), Added on: New Future Order: Lab Order CBC w/di ff ([id number]), Sent on: Sent Future Order: Lab Order CMP ([id number]), Sent on: Sent Future Order: Lab Order Hemoglob in A1c ([id number]), Sent on: Sent Future Order: Lab Order Lipid Pa yoan With LDL/HDL Ratio ([id number]), Sent on: Sent Future Order: Lab Order TSH ([id number]), Sent on: Sent Future Order: Lab Order Vitamin D, 25-Hydroxy ([id number]), Sent on: Sent Future Order: Lab Order Vitamin B12 and Folate ([id number]), Sent on: Sent History Of Present Illness Encounter Date Complaint History Of Prese nt Illness Acid reflux The problem is g etting worse. It occurs randomly. The symptoms are aggravated by cold liquids and eating. Denies relieving factors. Associated symptoms include reflux. Pertinent negatives include dental erosions, nausea and post-nasal drainage. Additional information: Patient is here today requesting a script for Omeprazole capsules, states the OTC pills are not helping. States this happens about 1 time a year Prevention Last Physical: 1 09-20-22Last BW: [id number] Pap Smear: 2 years ago at [facility] in [place], will request the record [facility] PHQ-9: 2GAD-7: 2 CAGE: 0 preventive exam Negative for: br east discharge, breast lump(s) and breast pain. Positive for: breast self exam. Menopausal symptoms negative for: hot flashes, insomnia, night sweats and vaginal dryness. Associated symptoms include anxiety, depression and difficulty falling sleep. Pertinent negatives include sleep disturbances, urinary incontinence, urinary urgency, vaginal discharge and vaginal itching. Client does not take calcium. Client does not take Vitamin D. Client does not take multivitamins. Client does not take Folic acid. The client does drink alcohol. Additional information: Patient is here today due for his annual exam. tobacco Pt interested in stopping vaping and smoking; would like patches Virtual Visit Today's Visit wa s conducted via virtual visit protocol.Connection was established and patient's full name and date of confirmed.I provided guidance regarding the virtual visit process.I monitored and assured connectivity throughout the visit.Pt confirms currently in [place] Headache Onset: 3 Months. Locations affected include right frontal. Aggravating factors include allergies and smoke. Symptoms are relieved by bath. Associated symptoms include photophobia. Pertinent negatives include blurred vision, diplopia, dizziness, fever, hemianopsia left, hemianopsia right, loss of consciousness, memory impairment, nausea, personality changes, phonophobia, neck stiffness, vision loss left, vision loss right, visual aura, vertigo and vomiting. Additional information: Started after cerumen removal Trialed Certirizine with little relief; ibuprofen and Tylenol help relief help but do not make pain go away completely; lasts 30min-hours; 2 per week. Virtual Visit Today's Visit wa s conducted via virtual visit protocol.Connection was established and patient's full name and date of confirmed.I provided guidance regarding the virtual visit process.I monitored and assured connectivity throughout the visit.Pt confirms currently in [place] Prevention Last Physical: 1 09-20-22Last BW: 46-12-32Xwgr Pap Smear: has never had a pap, encouraged to schedule [facility] PHQ-9: 3GAD-7: 2 CAGE: 0 Ear discomfort Onset: sudden. D uration: day. The patient states the ear discomfort is in the left ear. It occurs constantly. The problem is with no change. Symptom is aggravated by lying down and yawning. Associated symptoms include fullness in ears, clogged feeling and can hear himself talk. Pertinent negatives include bleeding from ear(s), cough, drainage (clear), drainage (purulent), ear pressure, fever, loss of balance, nausea and vomiting. Additional information: Patient is here today due to decrased hearing in his Left ear and feels clogged and there is some pain when he yawns or lays on it for a long period of time. Virtual Visit Today's Visit wa s conducted via virtual visit protocol.Connection was established and patients full name and date of confirmed.I provided guidance regarding the virtual visit process.I monitored and assured connectivity throughout the visit. Sinus symptoms (acute) Onset: 7 Days. The problem has worsened. The right side is affected. Pertinent/initial symptoms include facial pain and sinus pain. Denies relieving factors. Associated symptoms include fever, headache, otalgia, sinus pressure and tooth pain. Pertinent negatives include cough, sore throat or diarrhea. Additional information: Flonase and Cetirizine help minimally. Nausea It occurs daily. Context: during daytime and [address] Associated symptoms include anxiety. Pertinent negatives include cough, diarrhea and fever. Additional information: Patient is here today requesting a refill and states he has an hour car ride and needs his Zofran. Prevention Last Physical: d Lancest BW: due Last Pap Smear: due, encouraged to have [facility] PHQ-9: 3GAD-7: 1 CAGE: 0Referral to preventive exam Last LMP was . Her menses is regular. Negative for: breast discharge, breast lump(s) and breast pain. Positive for: breast self exam. Menopausal symptoms negative for: hot flashes, insomnia, night sweats and vaginal dryness. Associated symptoms include anxiety and depression. Pertinent negatives include difficulty falling sleep, sleep disturbances, urinary incontinence, urinary urgency, vaginal discharge and vaginal itching. She does not take calcium. She does not take Vitamin D. She does take multivitamins daily. She does not take Folic acid. She does not drink alcohol. Additional information: Patient is here today due for his annual exam and medication refills . Virtual Visit Today's Visit wa s conducted via virtual visit protocol.Connection was established and patient's full name and date of confirmed.I provided guidance regarding the virtual visit process.I monitored and assured connectivity throughout the visit. Abdominal pain Pertinent negati ves include back pain, bloating, blood in stool, change in appetite, constipation, diaphoresis, diarrhea, dizziness, dyspnea, eructation, fever, flank pain, flatulence, heartburn, hematuria, jaundice, lightheadedness, myalgia, nausea, rash, vaginal bleeding, vaginal discharge, vomiting, weight gain and weight loss. Additional information: HIDA scan was normal; saw Dr Huang, would like a second opinion. Virtual Visit Today's Visit wa s conducted via virtual visit protocol.Connection was established and patient's full name and date of confirmed.I provided guidance regarding the virtual visit process.I monitored and assured connectivity throughout the visit. Abdominal pain Pertinent negati ves include back pain, bloating, blood in stool, change in appetite, constipation, diaphoresis, diarrhea, dizziness, dyspnea, eructation, fever, flank pain, flatulence, heartburn, hematuria, jaundice, lightheadedness, myalgia, nausea, rash, vaginal bleeding, vaginal discharge, vomiting, weight gain and weight loss. Additional information: discussed lab results; pt had an episode of pain after eating [employer]. Abdominal pain Associated sympt oms include constipation and diarrhea. Pertinent negatives include back pain, bloating, blood in stool, change in appetite, diaphoresis, dizziness, dyspnea, eructation, fever, flank pain, flatulence, heartburn, hematuria, jaundice, lightheadedness, myalgia, nausea, rash, vaginal bleeding, vaginal discharge, vomiting, weight gain and weight loss. Additional information: pt has apt with Dr Yanez on 03/01. Virtual Visit Today's Visit wa s conducted via virtual visit protocol.Connection was established and patient's full name and date of confirmed.I provided guidance regarding the virtual visit process.I monitored and assured connectivity throughout the visit. mass pt has mass unde r arm/breast; was seen previously by specialist; feels like it is getting larger; left breast Virtual Visit Today's Visit wa s conducted via virtual visit protocol.Connection was established and patient's full name and date of confirmed.I provided guidance regarding the virtual visit process.I monitored and assured connectivity throughout the visit. Virtual Visit Today's Visit wa s conducted via virtual visit protocol.Connection was established and patient's full name and date of confirmed.I provided guidance regarding the virtual visit process.I monitored and assured connectivity throughout the visit. Constipation Onset: 3 days ag o. The client describes it as difficulty passing. The client is also experiencing abdominal pain. Pertinent negatives include anorexia, back pain, black tarry stools, bleeding with bowel movement, bloating, change in appetite, change in stool caliber, change in stool pattern, flatulence, nausea, pain with passing stool, sedentary activity, vomiting, weight gain and weight loss. 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 Virtual Visit Today's Visit wa s conducted via virtual visit protocol.Connection was established and patient's full name and date of confirmed.I provided guidance regarding the virtual visit process.I monitored and assured connectivity throughout the visit. Nausea and vomiting Onset: 1 mon ago. Associated symptoms include vomiting. Pertinent negatives include abdominal pain, anorexia, bloating, blood in stool, cramping (abdominal), decreased urine output, dehydration, distention (abdominal), fecal incontinence, fever, flatulence, joint pain, nausea, rash, tenesmus and weight loss. Additional information: pt has had this for a very long time and it has gotten a lot worse in the past month. chest pain The patient pres ents with a complaint of chest pain. The symptoms began 2 weeks ago. Additional information: pt moved 18 tons of gravel by hand; pain increases with movement and coughing. Virtual Visit Today's Visit wa cb conducted via virtual visit protocol.Connection was established and patient's full name and date of confirmed.I provided guidance regarding the virtual visit process.I monitored and assured connectivity throughout the visit. abdominal pain Onset: 1 Week. T he location is right upper quadrant and left upper quadrant. The patient denies aggravating factors. Associated symptoms include vomiting. Pertinent negatives include back pain, bloating, blood in stool, change in appetite, constipation, diaphoresis, diarrhea, dizziness, dyspnea, eructation, fever, flank pain, flatulence, heartburn, hematuria, jaundice, lightheadedness, myalgia, nausea, rash, vaginal bleeding, vaginal discharge, weight gain and weight loss. Virtual Visit Today's Visit wa s conducted via virtual visit protocol.Connection was established and patient's full name and date of confirmed.I provided guidance regarding the virtual visit process.I monitored and assured connectivity throughout the visit. depression This is a follow up visit. There is improvement of initial symptoms. The patient presents with anxious/fearful thoughts and excessive worry but denies paranoia, poor judgment, racing thoughts, restlessness or thoughts of or suicide. The depression is aggravated by conflict or stress and drug use. The patient denies any nausea and vomiting. Additional information: Mood is ok. stopped all medications, desires to focus on ADD dx and tx CDC referral . Cont to smoke cannabis daily. Sleep is adequate and appetite are adequate. Substance abuse Daily cannabis s moker Stressed Brother is in [place] for stealing items from father, due to addiction. Patient reports it has been a difficult month dealing w/ this major stressor Stressed Stress is manage able today. Reports smoking cannabis throughout day, discussed dangers of usp daily use of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 50mg, wants to wait on ADD eval Therapist Melissa Arizmendi 1. Encouraged patient to attend group or individual therapies that are deemed appropriate in order to help with coping skills- as this is a vital component of their treatment plan. 2. Reviewed health habits, and sleep hygiene habits in order to improve mood and functions.3. Patient to follow up with PCP as needed for further management and treatment needs. 4. Labs needed r. 5. OARRS reviewed, 6. Crisis plan discussed w/ verbalization of understanding of patient, number provided.7. Patient to return in 4 weeks, sooner if needed. Contact number provider for any concerns or issues Side effects of medications have been discussed including worsening mood, SI, HI, off label use and EPS from each medication. Plan was reviewed with patient as well as 1. The risk versus benefit of treatment versus no treatment 2. Probability of recurrence, worsening mood/behaviors, suicidal/homicidal ideations 3. Side effects and the potential risk of allergic responses, seizures, rashes and including idiosyncratic and chronic toxicities, brain injury, and . . Related to Major depressive disorder, recurrent episode with mixed features Recommended disconti nuing illicit substance use. Discussed all risk associated with illicit substance use. Discussed treatment options for patient and patient verbalized understanding Related to Cannabis abuse Treatment Planstart zoloft 25mg for 2 weeks, then increase to 50mg, adult ADD eval at [facility]. Encouraged patient to attend group or individual therapies that are deemed appropriate in order to help with coping skills- as this is a vital component of their treatment plan. 2. Reviewed health habits, and sleep hygiene habits in order to improve mood and functions.3. Patient to follow up with PCP as needed for further management and treatment needs. 4. Labs needed r. 5. OARRS reviewed, 6. Crisis plan discussed w/ verbalization of understanding of patient, number provided.7. Patient to return in 4 weeks, sooner if needed. Contact number provider for any concerns or issues Side effects of medications have been discussed including worsening mood, SI, HI, off label use and EPS from each medication. Plan was reviewed with patient as well as 1. The risk versus benefit of treatment versus no treatment 2. Probability of recurrence, worsening mood/behaviors, suicidal/homicidal ideations 3. Side effects and the potential risk of allergic responses, seizures, rashes and including idiosyncratic and chronic toxicities, brain injury, and . . Related to Major depressive disorder, recurrent episode with mixed features Take all medications as prescribedThese medications are meant to control inflammation, muscle spasms, and painOrtho referral Related to Left anterior shoulder pain Giving encouragement to exercise Related to Body mass index (BMI) 20.0-20.9, adult Lifestyle education regarding di et Related to Body mass index (BMI) 20.0-20.9, adult . Related to Left anterior shoulder pain 1. Willing to cont A bilify for another month 2. Enc to complete labs3. RTO in 4 weeks or sooner if necessary4. V/U that care is being transferred to another Provider due to this Provider leaving. 5. 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 Cont Hydroxyzine Related to S leep disturbance 1. 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 Trial Hydroxyzine as needed for sleep2. D/C Trazodone Related to Sleep disturbance 1. Increase Abilify2 . Cont therapy3. RTO in 3-4 weeks or sooner if necessary4. Client verbalizes understanding that their psychiatric care will be transferred to another Provider in the near future due to this Provider leaving.5. 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 D/C Strattera Related to ADHD , predominantly inattentive type 1. D/C Strattera2. T sylvia Meehan-collaborated with Dr Fercho Carpenter and this has some evidence of efficacy in ADHD3. RTO in 2-3 weeks or sooner if necessary4. Labs5. Medication education provided to include risk and recognition of side effects and adverse effects, risk versus benefit of all treatment options including no treatment, importance of medication compliance and reporting any side effects and medication changes to this provider; client verbalizes understanding6. LVM for therapist for collaboration Related to Bipolar 2 disorder smoke avoidance Related to Nause a 1. D/C Prozac due to intolerable s/e2. Cont psychotherapy Related to Moderate episode of recurrent major depressive disorder 1. Trial Strattera2. Counselled on behavior modifications3. Counselled on how malnutrition can effect concentration and overall mood4. RTO in 2-4 weeks or sooner if necessary5. 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 Taper Wellbutrin2 . Start Prozac3. Cont psychotherapy4. RTO in 4 weeks or sooner if necessary5. Medication education provided to include risk and recognition of side effects and adverse effects, risk versus benefit of all treatment options including no treatment, importance of medication compliance and reporting any side effects and medication changes to this provider; client verbalizes understanding Related to Moderate episode of recurrent major depressive disorder 1. Weight stable Related to Hist ory of eating disorder 1. Increase Wellbutr in2. Cont therapy3. RTO in 4 weeks or sooner if necessary4. Medication education provided to include risk and recognition of side effects and adverse effects, risk versus benefit of all treatment options including no treatment, importance of medication compliance and reporting any side effects and medication changes to this provider; client verbalizes understanding5. Counselled on importance of well balanced diet. Discussed barriers and ways to overcome barriers. 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 Will monitor Related to Histo ry of eating disorder 1. Start Wellbutrin- counselled on potential antidepressant effects, as well as, potential increased energy and off label use for ADHD. Counselled in detail that if client were to start losing weight, that this medication would have to be discontinued. 2. Counselled on mindfulness. Provided written materials3. Cont therapy4. RTO in 3-4 weeks or sooner if necessary5. Medication education provided to include risk and recognition of side effects and adverse effects, risk versus benefit of all treatment options including no treatment, importance of medication compliance and reporting any side effects and medication changes to this provider; client verbalizes understanding Related to Moderate episode of recurrent major depressive disorder 1. Mindfulness Related to Anxie ty smoke avoidance Related to Encnt r for general adult medical exam w/o abnormal findings Giving encouragement to exercise Related to Body mass index (BMI) 19.9 or less, adult Lifestyle education regarding di et Related to Body mass index (BMI) 19.9 or less, adult Close personal conta ct with strep.Start azithromycin as directed. Get extra fluids. Warm salt water gargles four times daily as needed. Follow up if no better in 5-7 days. Related to Pharyngitis, unspecified etiology Previously seen and treated by [facility] end[facility].Per history pt has completed therapy and other required evaluations. Requesting a referral to endocrinology closer to [place]. I will contact you if I find anyone. Follow up for yearly well checks. Related to Transgender Right hip posterior/ SI joint pain for 2 years intermittently. Xray reviewed from ER visit 03/16/17 sclerosis along right SI joint.Refer to Dr Escobar orthopedist. Follow up after referral complete. Related to Right hip pain Well adolescent find ings. Immunizations reviewed and updated.Discussed endcrinology referral for transgender treatment. Follow up for yearly well checks. Related to Well adolescent visit with abnormal findings Age appropriate anti cipatory guidance discussed Related to routine /child health checkup Age appropriate safety discussed Related to routine /child health checkup Assessments Type Assessment Date No Information Patient Care Teams Name Effective Dates (start - stop) Status Members No Information
[2025-06-16 08:32] VITALS: BP 141/70; PULSE 87; O2SAT 99
[2025-06-16 08:33] VITALS: BP 141/70; PULSE 80; RESP 15; TEMP 36.6; O2SAT 100; BMI 18.6
--- NOTE | 2025-06-16 08:41 | PC.NURSE ---
spoke with Segundo from poison control. he states to make sure pt is able to tolerate po intake. pt looks well and is in no respiratory distress.
--- NOTE | 2025-06-16 08:51 | ED_ITS ---
Discharge Plan Disposition Patient Disposition: Home, Self-Care Referrals Follow up/Referrals: Provider,Referral, MD [Primary Care Provider, Medical] - See instructions Activity Restrictions/Add. Instructions Additional Instructions/Restrictions: You have been seen and evaluated in the emergency department. Please continue to monitor symptoms at home. Return to the emergency department to develop shortness of breath, fever, or chest pain. Clinical Impressions Clinical Impression: Encounter for medical assessment, Accidental exposure to bleach Print Language Print Language: [place] Discharge ED Provider: Lavonne Casillas Adult HPI General Chief complaint: Medical Clearance Stated complaint: inhaled bleach powder @ 06:00 am Time Seen by Provider: 06/16/25 08:39 Mode of Arrival: Ambulatory Source of Information: Patient Description of Symptoms (Recalled from ER Triage Doc. by RN): a container of powdered bleach fell into the patients face @0630. denies troube breathing but states her throat is slightly burning History of Present Illness HPI narrative: This is a 24-year-old female who presents emergency department for medical evaluation after exposure to a bleach powder . Patient was at work when so the bleach powder spilled from a high shelf onto her face. She yelled as the powder came down, and she thinks that she may have inhaled a small amount. She originally had nasal congestion and copious oral secretions, however this has subsided. She does have a mild sore throat. No shortness of breath or chest pain. No eye irritation. She did flush her eyes for 15 minutes in accordance to recommendations from poison control prior to arrival. [facility] Disclaimer: The information contained in this section may have been updated after the patient was seen, as this information can be updated by other users. Social History Smoking Status: Current every day smoker alcohol intake: never current occupational status: employed Travel in the last 8 weeks?: None ROS Obtained: Yes All systems reviewed & no additional complaints except as documented Physical Exam General General appearance: alert and in no apparent distress Head Head exam: atraumatic Eye Eye exam: Present normal appearance, PERRL and EOMI ENT ENT exam: Present mucous membranes moist and other (Mild posterior oropharyngeal erythema) Neck Neck exam: Present normal inspection and full ROM; Absent tenderness Chest Chest inspection: Present symmetric chest wall rise; Absent tenderness Respiratory Respiratory exam: Absent respiratory distress, wheezes or accessory muscle use Cardiovascular Cardiovascular exam: Present regular rate and normal rhythm Abdominal Exam Abdominal exam: Present soft; Absent tenderness or guarding Extremities Exam Extremities exam: Present full ROM; Absent tenderness Neurological Exam Neurological exam: Present alert and oriented X3 Psychiatric Psychiatric exam: Present normal affect Skin Skin exam: Present warm and dry Medical Decision Making Medical Records Medical records reviewed: Yes I reviewed the patient's medical records. Screening: Per USPSTF and CDC recommendations, given the prevalence of disease in our region, it is our hospital?s policy to screen for HIV and viral Hepatitis for all patients aged 18 and over and those with ongoing risk factors. [place] Inquiry Pt receiving controlled substance: No [place] was queried for this patient: No Vital Signs: 06/16/25 08:32 06/16/25 08:33 06/16/25 08:57 Temperature 97.9 F 97.9 F Temperature Source Oral Pulse Rate 87 74 Pulse Rate [Right] 80 Respiratory Rate 15 14 Blood Pressure 141/70 H 141/70 H Blood Pressure [Right Arm] 141/70 H Blood Pressure Mean [Right Arm] 93 02 Sat by Pulse Oximetry 99 100 Oxygen Delivery Method Room Air Room Air Room Air Medical Decision Narrative: This is a 24-year-old female presenting the emergency department for medical evaluation after exposure to bleach powder. Differential diagnosis includes but is not limited to: Pneumonitis, mucosal irritation, chemical irritant conjunctivitis On my initial assessment, the patient is hemodynamically stable in no acute distress. Physical exam is notable for very mild posterior oropharyngeal erythema. No increased secretions. Patient is saturating well on room air with otherwise reassuring vital signs. Please control was contacted again by RN. They advised that patient should drink water to flush the substance from the back of the throat. No observation period was recommended. Considering reassuring physical exam, the patient will be discharged home with instructions to monitor symptoms. Ultimately, symptoms are most consistent with mucosal irritation from small amount of bleach powder exposure. Very low clinical concern for active significant pneumonitis or other life-threatening/emergent process. There is no clinical indication for any lab work or imaging at this time. There is also no clinical indication for any extended observation.. The patient is hemodynamically stable, in no acute distress, and tolerating oral intake at the time of discharge. I did recommend continued home monitoring for fever, shortness of breath, or worsening symptoms. Otherwise, the patient is stable for ED discharge and will be discharged home. Critical Care Critical Care Time Critical Care Time: No
[2025-06-16 08:57] VITALS: BP 141/70; PULSE 74; RESP 14; TEMP 36.6; O2SAT 98
== END 2025-06-16 09:00 | disposition home or self-care (01) ==
PROVIDERS: Emergency Provider Student in an Organized Health Care Education/Training Program
DX: Z04.2 Encounter for examination and observation following work accident (principal)
CPT/HCPCS: 99282